=== PATIENT | female | born 1945 | race Caucasian/White ===

== ENCOUNTER → 2023-05-11 10:18 | Outpatient (REF) | payer MEDICARE, BC, SELFPAY ==
[2023-05-11 12:17] LABS: % Basophils 0.2 % (0-2); % Eosinophils 3.7 % (0-6); % Immature Granulocytes 0.2 % (0-0.5); % Lymphocytes 19.4 % (20.5-51.1); % Monocytes 8.5 % (1.7-9.3); Absolute Eosinophils 0.2 10^3/uL (0-0.7); Absolute Lymphocytes 1.1 10^3/uL (1.2-3.4); Absolute Monocytes 0.5 10^3/uL (0.1-0.6); Absolute Neutrophils 3.9 10^3/uL (1.4-6.5); Hemoglobin 13.9 g/dL (12.0-16.0); Mean Corp Hgb Conc. 33.9 g/dL (33.0-37.0); Mean Corpuscular Hgb 34.8 pg (27.0-31.0); Mean Corpuscular Volume 102.5 fL (81.0-99.0); Mean Platelet Volume 10.2 fL (7.4-10.4); Nucleated Red Blood Cells % 0 %; Platelet Count 234 10^3/uL (130-400); Red Cell Dist. Width 12.5 % (11.5-14.5); White Blood Cell Count 5.7 10^3/uL (4.8-10.8)
[2023-05-11 12:55] LABS: ALT (SGPT) 29 U/L (0-35); AST (SGOT) 28 U/L (14-36); Albumin 3.9 g/dl (3.5-5.0); Alkaline Phosphatase 201 U/L (38-126); Blood Urea Nitrogen 15 mg/dl (7-17); Calcium 9.3 mg/dl (8.4-10.2); Carbon Dioxide 28 mmol/L (22-30); Chloride 103 mmol/L (98-107); Glucose 90 mg/dl (70-99); Potassium 4.5 mmol/L (3.5-5.1); Sodium 134 mmol/L (135-145); Total Bilirubin 0.5 mg/dl (0.2-1.3); Total Cholesterol 166 mg/dl (50-199); Total Protein 6.6 g/dl (6.3-8.2); Triglyceride 109 mg/dl (10-149); Very Low Density Lipoprotein 21 mg/dl (0-30); eGFR > 60.00
[2023-05-11 13:04] LABS: HDL Cholesterol 110 mg/dl; LDL Cholesterol, Calculated 35 mg/dl
[2023-05-11 13:24] LABS: TSH Reflex To Free T4 0.74 uIU/ml (0.47-4.68)
[2023-05-11 14:21] LABS: Glycohemoglobin (HgbA1c) 5.4 % (4.0-5.6)
== END ==
LOC: DHCBC HW 10:18
PROVIDERS: ATTENDING PHYSICIAN Internal Medicine; FAMILY PHYSICIAN Student in an Organized Health Care Education/Training Program
DX: I25.10 Atherosclerotic heart disease of native coronary artery without angina pectoris (principal); I25.810 Atherosclerosis of coronary artery bypass graft(s) without angina pectoris; I10 Essential (primary) hypertension; R06.09 Other forms of dyspnea; E78.2 Mixed hyperlipidemia
CPT/HCPCS: 36415; 80053; 80061; 83036; 84443; 85025; 93306

== ENCOUNTER → 2023-06-08 14:26 | Outpatient (REF) | payer MEDICARE, BC, SELFPAY | LOC: HWRAD 14:26 | PROVIDERS: ATTENDING PHYSICIAN Student in an Organized Health Care Education/Training Program | DX: R05.3 Chronic cough (principal) | CPT/HCPCS: 71250 ==

== ENCOUNTER → 2023-08-01 | Outpatient (REF) | payer MEDICARE, BC, SELFPAY | LOC: DHSLP | PROVIDERS: ATTENDING PHYSICIAN Internal Medicine Critical Care Medicine; FAMILY PHYSICIAN Student in an Organized Health Care Education/Training Program | DX: G47.33 Obstructive sleep apnea (adult) (pediatric) (principal) | CPT/HCPCS: 95800 ==

== ENCOUNTER → 2023-10-26 11:40 | Outpatient (REF) | payer MEDICARE, BC, SELFPAY ==
[2023-10-26 16:32] LABS: NT-proBNP 494 pg/ml
[2023-10-26 17:24] LABS: Folate 6.4 ng/ml (2.76-20); Vitamin B12 499 pg/ml (239-931)
[2023-10-27 15:23] LABS: Lyme Antibody Screen, EIA Negative (Negative)
[2023-10-28 11:33] LABS: Syphilis/T. pallidum Ab Reflex Negative (Negative)
== END ==
LOC: HWLAB 11:40
PROVIDERS: ATTENDING PHYSICIAN Student in an Organized Health Care Education/Training Program
DX: R06.09 Other forms of dyspnea (principal); G62.9 Polyneuropathy, unspecified; D53.9 Nutritional anemia, unspecified
CPT/HCPCS: 36415; 82607; 82746; 83880; 84155; 84165; 86618; 86780

== ENCOUNTER → 2024-03-07 11:03 | Outpatient (REF) | payer MEDICARE, BC, SELFPAY ==
[2024-03-07 16:39] LABS: % Basophils 0.4 % (0-2); % Eosinophils 3.2 % (0-6); % Immature Granulocytes 0.5 % (0-0.5); % Lymphocytes 23.2 % (20.5-51.1); % Monocytes 7.1 % (1.7-9.3); % Neutrophils 65.6 % (42.2-75.2); Absolute Eosinophils 0.2 10^3/uL (0-0.7); Absolute Lymphocytes 1.3 10^3/uL (1.2-3.4); Absolute Monocytes 0.4 10^3/uL (0.1-0.6); Absolute Neutrophils 3.7 10^3/uL (1.4-6.5); Hematocrit 42.4 % (37.0-47.0); Mean Corpuscular Hgb 34.3 pg (27.0-31.0); Mean Corpuscular Volume 103.9 fL (81.0-99.0); Mean Platelet Volume 9.9 fL (7.4-10.4); Nucleated Red Blood Cells % 0 %; Platelet Count 261 10^3/uL (130-400); Red Blood Cell Count 4.08 10^6/uL (4.20-5.40); Red Cell Dist. Width 12.4 % (11.5-14.5); Reticulocyte Count 2.5 % (0.4-2.8); White Blood Cell Count 5.7 10^3/uL (4.8-10.8)
[2024-03-07 16:44] LABS: ALT (SGPT) 33 U/L (0-35); AST (SGOT) 30 U/L (14-36); Albumin 3.9 g/dl (3.5-5.0); Alkaline Phosphatase 186 U/L (38-126); Blood Urea Nitrogen 14 mg/dl (7-17); Calcium 9.4 mg/dl (8.4-10.2); Carbon Dioxide 27 mmol/L (22-30); Chloride 100 mmol/L (98-107); Glucose 103 mg/dl (70-99); Potassium 4.5 mmol/L (3.5-5.1); Sodium 135 mmol/L (135-145); Total Bilirubin 0.3 mg/dl (0.2-1.3); Total Protein 6.6 g/dl (6.3-8.2); eGFR > 60.00
[2024-03-07 17:15] LABS: TSH 0.76 uIU/ml (0.47-4.68)
[2024-03-07 17:50] LABS: Folate 7.7 ng/ml (2.76-20)
[2024-03-07 18:51] LABS: Vitamin B12 382 pg/ml (239-931)
== END ==
LOC: HWLAB 11:03
DX: E66.9 Obesity, unspecified (principal); D53.9 Nutritional anemia, unspecified
CPT/HCPCS: 36415; 80053; 82607; 82746; 84443; 85025; 85045

== ENCOUNTER → 2024-03-12 07:45 | Outpatient (REF) | payer MEDICARE, BC, SELFPAY | LOC: HWRCS 07:45 | DX: R06.02 Shortness of breath (principal) | CPT/HCPCS: 78452; 93017; A9500; J2785 ==

== ENCOUNTER 2024-03-16 06:27 | Day surgery (SDC) | payer MEDICARE, BC, SELFPAY ==
--- NOTE | 2024-03-14 07:50 | HPS.HSE ---
Family Physician
-
Family Physician: NO INTERVIEW UNKNOWN
Chief Complaint
-
Coronary artery disease. Abnormal stress test. Chest pain.
History of Present Illness
The patient is a 78 year old female presenting today with recent chest pain. She describes a 'tightness' in her chest over the last few weeks that has remained fairly constant. Her discomfort radiates down her right upper extremity and
across her upper back. She notes associated shortness of breath and dizziness. She does report she has been under more stress lately given her 's recent health issues. Exertion notably makes her chest discomfort worse. Relaxation techniques
like 'reading a good book' make her chest discomfort better. She does have a history of coronary artery disease for which she underwent a CABG x3 and left circumflex stent in 2011. She is on Aspirin and Crestor for this diagnosis. She was advised by
her routine physical therapy instructor, Dr. Yves Dupont, to undergo a stress test given her medical history and concerning symptoms. Her stress test on 03/12/2024 revealed a medium-sized, mild intensity reversible defect in the mid to distal anterolateral and
inferolateral busby, consistent with ischemia in the LAD versus left circumflex territory. Given her abnormal result, she will next proceed with left cardiac catheterization with bypass grafts. She denies any current complaints today such as
palpitations, nausea, vomiting, diarrhea, lightheadedness, cough, sore throat, or fever.
Medical History
Past Medical History
Past Medical History: Reports Other
Additional Past Medical History:
1. Coronary artery disease, status post CABG x3 and PCI with left circumflex stent 2011.
2. Abnormal stress test.
3. Chest pain.
4. Hypertension.
5. Hyperlipidemia.
6. Congestive heart failure, preserved ejection fraction.
7. History of syncope with non-functioning LINQ recorder.
8. Mild mitral regurgitation.
9. Mild tricuspid regurgitation.
10. Chronic venous insufficiency with lymphedema.
11. 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
12. Asthma, mild and intermittent.
13. Chronic bronchitis.
14. Interstitial lung disease.
15. Obstructive sleep apnea, compliant with CPAP.
16. GERD.
17. Diverticulitis, status post bowel resection 2001.
18. Remote GI ulcer with bleed.
19. Ambulatory dysfunction.
20. Osteoarthritis, status post right total knee arthroplasty, 02/2021, and left total knee arthroplasty 11/2021.
21. Basal cell carcinoma, status post multiple excisions.
22. Obesity, BMI 37.7.
23. History of remote tobacco abuse.
24. Daily alcohol.
Past Surgical History: Reports Other
Additional Past Surgical History:
1. PCI with left circumflex stent.
2. CABG x3.
3. Implantable LINQ recorder.
4. Left total knee arthroplasty.
5. Right total knee arthroplasty.
6. Bilateral knee meniscectomies.
7. Colon resection.
8. section x2.
9. Tonsillectomy.
10. Eye socket repair.
11. Bilateral cataract extraction.
12. Colonoscopy x3.
Social History
Tobacco: Former Smoker (She is a former 1 pack per day cigarette smoker who quit tobacco altogether 20+ years ago. )
Alcohol: Daily (She reports 2 glasses of wine consumed daily. )
Personal:
Living: Other (She lives with her in a first floor, 1 story condo with 5 steps to enter in. )
Family History
Family History: Early CAD
Allergies / Home Medications
Allergy/Medication List:
Home medications:
1. Tylenol 1000 mg p.o. twice a day.
2. Ascorbic acid 1000 mg p.o. daily.
3. Aspirin 81 mg p.o. daily.
4. CoQ10 100 mg p.o. daily.
5. Furosemide 40 mg p.o. daily.
6. Nebivolol 5 mg p.o. daily.
7. PreserVision 1 tablet p.o. daily.
8. Rosuvastatin 10 mg p.o. daily.
9. Wegovy 1 mg subcutaneous on Wednesdays.
Allergies: No known allergies.
Review of Systems
-
A 12 point ROS was completed and negative except as noted: Yes
Physical Exam
Vital Signs
Blood pressure 137/72. Heart rate 78. Respirations 18. Pulse ox 99% on room air.
Height 5 feet, 0.5 inches. Weight 89 kg. BMI 37.7.
Physical Exam
General: Well Developed, Well Nourished and No Apparent Distress
HEENT: NormoCephalic, Moist mucous membranes, Atraumatic and PERRLA
Respiratory: Clear
Cardiac: Regular Rhythm
GI: Soft, Non Tender, Non Distended and Other (Obese. )
Musculoskeletal: Other (Chronic lymphedema of bilateral lower extremities. The patient ambulates with a single point cane. )
Skin: Warm and Dry
Neuro: AO x 3 and Nonfocal/grossly intact
Laboratory Results
-
DIAGNOSTIC STUDIES as of 03/07/2024: White blood cell count 5.7. Hemoglobin 14.0. Platelet count 261,000. Sodium 135. Potassium 4.5. BUN 14. Creatinine 0.9. Glucose 103. Calcium 9.4. AST 30. ALT 33. Albumin 3.9.
EKG 03/14/2024: Normal sinus rhythm. ST and T wave abnormality, consider anterior ischemia.
Nuclear stress test 03/12/2024: Medium-sized, mild intensity reversible defect in the mid to distal anterolateral and inferolateral busby, consistent with ischemia in the LAD versus left circumflex territory. Inconclusive ECG for ischemia given the
pharmacological study. Systolic function is normal. The ejection fraction is 68%. Stress Risk is moderate risk study (1 - 3% NV or /year).
Echocardiogram 05/11/2023: Normal LV size and function with no regional wall motion abnormality. Ejection fraction is 60 to 65% by visual estimation. No left ventricular hypertrophy. Stage I diastolic dysfunction suggestive of abnormal relaxation.
Normal right ventricular size and function. Mild mitral regurgitation. Mild tricuspid regurgitation. Estimated pulmonary artery pressure of 40 mmHg, assuming a right atrial pressure of 3 mmHg. Compared to prior from September 03, 2020, estimated PASP is
now top normal.
Impression/Plan
-
IMPRESSION/PLAN:
1. Coronary artery disease, abnormal stress test, and chest pain: The patient is in need of a left cardiac catheterization with bypass grafts with Dr. Keanu Sanchez on 03/16/2024. The benefits and risks of the procedure have been explained to the
patient. The patient understands these risks and wishes to proceed. She is aware to continue her daily Aspirin up to and including the day of her procedure. She has held her Wegovy within 1 week of her catheterization.
[2024-03-14 10:50] VITALS: BMI 37.7
[2024-03-16] VITALS (13 sets, daily range): BP systolic 108–164; BP diastolic 58–115; BMI 37.1
[2024-03-16] MEDS: LOW STRENGTH ASPIRIN 81 MG PO (07:16)
[2024-03-16] MEDS: NSS 267 ML IV (07:35)
[2024-03-16 10:54] LABS: ACT-LR - POC > 397 Seconds (116-155)
[2024-03-16] MEDS: BYSTOLIC 5 MG PO (11:36)
--- NOTE | 2024-03-16 14:07 | ITS.CL.ANGIO ---
Environment Coordinator - Angioplasty
Angioplasty
Procedure Report:
CARDIAC CATHETERIZATION REPORT
Date of Procedure: 03/16/2024
Referring: Yves Dupont M.D., Ph.D.
Indication: Known coronary artery disease status post bypass, new angina, abnormal stress test.
PROCEDURE:
1. Right heart catheterization.
2. Coronary angiography.
3. Bypass angiography.
4. Left heart catheterization.
5. Successful intracoronary lithotripsy of the distal left main coronary artery/ostial circumflex.
6. Successful IVUS guided PCI of the distal left main coronary artery/ostial circumflex.
A total of 55 minutes of procedural/moderate sedation was utilized. An independent medical center manager was present to assist with and help manage the patient's level of consciousness and physiologic status.
ACCESS:
1. 6 Latvian left radial artery using a modified Seldinger technique.
2. 5 Latvian left antecubital vein using a modified Seldinger technique under ultrasound guidance. Ultrasound image obtained.
CATHETERS:
1. 5 Latvian balloon wedge.
2. 5 Latvian DENYS.
3. 5 Latvian JL 4.
4. 5 Latvian JR4.
5. 6 Latvian AL-1.
6. 6 Latvian JL 4 guiding catheter.
HEMODYNAMIC DATA
Weight (kg): 88.9
AO (s/d/x, mmHg): 174/81/122
LV (s/x, mmHg): 174/16 (A wave to 30)
PCWP (a/v/x, mmHg): //18
PA (s/d/x, mmHg): /
RV (s/x, mmHg): 45/10
RA (a/v/x, mmHg): 01/25/
SVC SvO2 (%): 71.0
IVC SvO2 (%): Not obtained.
RA SvO2 (%): Not obtained.
RV SvO2 (%): Not obtained.
PA SvO2 (%): 75.8
SaO2 (%): 97.9
Hbg (g/dL): 12.9
KACI
CO (L/min): 4.47
CI (L/min/m2): 2.39
Thermodilution
CO (L/min): Not performed
CI (L/min/m2): Not performed.
TPG (mmHg): 11
PVR (Wright Units): 2.46
SVR (dynes*seconds*cm^-5): 2003
AVO2 Diff (Volume %): 3.88
AV gradient (x, mmHg): None.
AV area (cm2): Normal.
MV gradient (x, mmHg): Not assessed.
MV area (cm2): Not assessed.
LEFT VENTRICULOGRAPHY: Not performed.
AORTOGRAPHY: Not performed.
CORONARY ANGIOGRAPHY
Dominance: Right.
Left Main: Normal size, bifurcating vessel. There is a hazy, densely calcified 70+% lesion in the distal left main coronary artery extending into the ostium of the left circumflex.
LAD: Normal size vessel giving rise to at least 1 significant diagonal. There is a 95% lesion in the proximal margin of the LAD. The first diagonal appears to be flush occluded at its origin. The distal LAD is supplied by a patent CHAND graft.
The diagonal supplied by patent SVG.
Ramus: Congenitally absent.
Circumflex: Normal size, nondominant vessel giving rise to a single obtuse marginal which subsequently bifurcates into 2 daughter vessels. A patent stent is visible in the proximal margin of the circumflex, well clear of the origin. There is a
hazy, densely calcified 80% lesion in the ostium of the circumflex that extends from the left main lesion.
RCA: Normal size, dominant vessel. There is notable external calcification. There is a long, 20% lesion in the mid vessel.
BYPASS GRAFT ANGIOGRAPHY
CHAND to LAD: Normal size graft with nearly horizontal, medially angled origin with end-to-side anastomosis to the mid LAD. There is no evidence of stenosis or graft degeneration.
SVG to D1: Normal size graft with end-to-side anastomosis to the mid D1. There is no evidence of stenosis or graft degeneration. This requires an AL-1 catheter for engagement. The origin is near the middle of the loop recorder.
SVG to RCA: Not injected, known to be occluded.
INTERVENTIONS
1. Successful intracoronary lithotripsy of the densely calcified 70-80% lesion in the distal left main coronary artery into the ostium of the left circumflex (shockwave 3.5 x 12 lithotripsy balloon) with reduction in stenosis to 20%, maintaining
ELAN-3 flow.
2. Intravascular ultrasound.
3. Successful PCI of the densely calcified 70-80% distal LMCA/ostial LCx lesion ([employer] [place] Moffat 3.5 x 18 LARISSA, postdilated with a 3.5 NC balloon throughout and a 4.0 NC balloon in the proximal margin) with reduction in stenosis to 0%,
maintaining ELAN-3 flow.
Narrative:
The decision was made to proceed with percutaneous coronary intervention. The diagnostic catheter was removed over a wire and a 6Fr EBU 4.0 guiding catheter was advanced to the aortic root but would not sit in the artery. The EBU 4.0 was exchanged
for a 6 [place]vian JL 4.0 guiding catheter which was advanced into the ascending aorta and seated in the left main coronary artery. Additional heparin was given and a Power Turn Flex wire was advanced into the distal circumflex. The hazy 70-80% distal
left main/ostial circumflex lesion was predilated with a 2.0 x 12 semi-compliant balloon to 12 jaylen.
The decision was made to perform intracoronary imaging. An IVUS catheter was advanced through the guiding catheter and into the ostium of the artery. Ring down was performed once the imaging crystal was no longer inside of the guiding catheter. The
IVUS catheter was advanced into the proximal circumflex to the level of the prior stent. Intravascular ultrasound was performed in a retrograde fashion using a slow pullback. Intracoronary imaging demonstrated a densely calcified, occlusive lesion
in the distal left main coronary artery leading into the ostial circumflex. The lesion was more densely calcified than appreciated on angiography. Vessel sizing measurements were taken.
The decision was made to proceed with plaque modification. A Shockwave 3.5 x 12 coronary lithotripsy balloon was advanced over the wire and into the distal left main/ostial circumflex lesion. The balloon was sterilely connected to the controller
and prepped to negative pressure. Meticulous care was taken while positioning the shockwave balloon. Once in satisfactory position, the balloon was inflated to 4 jaylen. After confirming good contact with the vessel wall, 10 pulses were delivered.
After delivering 10 pulses, the balloon was inflated to 6 jaylen then deflated. The entire lesion was treated in a similar manner for total of 5 rounds.
The lithotripsy balloon was removed and a [employer] [place] Moffat 3.5 x 18 drug-eluting stent was advanced. The stent was deployed at 12 atmospheres. The stent balloon was removed. A 3.5 x 12 noncompliant balloon was advanced into the stent and the
stent was postdilated to 14 atmospheres in the distal and mid portions and 16 jaylen in the proximal margin. The noncompliant balloon was withdrawn and a 4.0 x 8 noncompliant balloon was advanced. The mid stent and proximal stent margin were
postdilated to 14 jaylen and 16 jaylen respectively. The noncompliant balloon was withdrawn. IVUS was repeated showing excellent stent expansion and apposition throughout the proximal circumflex and distal left main coronary artery. The IVUS catheter
was withdrawn.
Angiography was performed in orthogonal views, confirming good stent expansion and an excellent angiographic result. The coronary wire was withdrawn and the guide was disengaged from the artery. The catheter was removed over a standard J-wire.
Closure Device: Vascular band for the left radial artery, manual pressure for the left antecubital vein.
Radiation dose (mGy): 945.87
DAP (cm2.Gy): 63.6239
Fluoroscopy time (minutes): 22.8
CONCLUSIONS:
1. Right dominant circulation with a 20% lesion in the mid RCA, a 95% lesion in the proximal margin of the LAD, a flush occluded diagonal and a hazy, densely calcified 70-80% lesion in the distal left main coronary artery leading into the ostium of
the left circumflex, status post prior bypass (patent CHAND to mid LAD, patent SVG to D1, flush occluded SVG to RCA) and a widely patent stent in the proximal circumflex, distal to the ostial lesion.
2. Status post successful intracoronary lithotripsy (shockwave 3.5 x 12 lithotripsy balloon) and IVUS guided PCI to the distal left main/ostial circumflex lesion ([employer]onic [place] 3.5 x 18 LARISSA, postdilated with a 3.5 NC balloon throughout
and a 4.0 NC balloon in the proximal margin) with reduction in stenosis to 0%, maintaining ELAN-3 flow.
3. Mildly elevated filling pressures (LVEDP = 16 mmHg, PCWP = 18 mmHg at 88.9 kg) without evidence of diastolic dysfunction (A wave to 30 mmHg).
4. Mild, postcapillary pulmonary hypertension (mean PA = 29 mmHg, PCWP = 18 mmHg, cardiac output = 4.47 L/min, PVR = 2.46 Wood units), WHO group 2.
RECOMMENDATIONS:
1. Expectant management after cardiac catheterization via left radial/left antecubital approach.
2. Limited weight bearing on the left wrist for one week.
3. Dual antiplatelet therapy with aspirin and clopidogrel for at least 12 months, followed by aspirin indefinitely.
4. Aggressive secondary prevention with high-dose, high potency statin. She is currently on rosuvastatin 10 mg daily. Increasing to 20 mg may be beneficial. Goal LDL <55.
5. OMT/GDMT as hemodynamics will tolerate.
Copy to: Yves Dupont M.D., Ph.D., Wendy Knapp M.D.
Keanu Sanchez DO, FACC, FACP
--- NOTE | 2024-03-16 16:01 | W.PN.UPDATE ---
Update Note
Progress Note Update
79 yo WF s/p PCI LCx with shockwave (Same day) She denies cp, sob, anuj diet, voiding, L rad site c/d/i, mod ecchymosis distal to site, brachial site c/d/i, EKG SR. She will continue DAPT ASA/Plavix. We will increase rosuvastatin to 10mg last LDL
under 55. Cardiac rehab c/s. Activity restrictions reviewed. She will f/u LAB RN in 2-4 weeks. She is for d/c home after 4pm.
CONCLUSIONS:
1. Right dominant circulation with a 20% lesion in the mid RCA, a 95% lesion in the proximal margin of the LAD, a flush occluded diagonal and a hazy, densely calcified 70-80% lesion in the distal left main coronary artery leading into the ostium of
the left circumflex, status post prior bypass (patent CHAND to mid LAD, patent SVG to D1, flush occluded SVG to RCA) and a widely patent stent in the proximal circumflex, distal to the ostial lesion.
2. Status post successful intracoronary lithotripsy (shockwave 3.5 x 12 lithotripsy balloon) and IVUS guided PCI to the distal left main/ostial circumflex lesion ([employer]onic [place] 3.5 x 18 LARISSA, postdilated with a 3.5 NC balloon throughout
and a 4.0 NC balloon in the proximal margin) with reduction in stenosis to 0%, maintaining ELAN-3 flow.
3. Mildly elevated filling pressures (LVEDP = 16 mmHg, PCWP = 18 mmHg at 88.9 kg) without evidence of diastolic dysfunction (A wave to 30 mmHg).
4. Mild, postcapillary pulmonary hypertension (mean PA = 29 mmHg, PCWP = 18 mmHg, cardiac output = 4.47 L/min, PVR = 2.46 Wood units), WHO group 2.
== END 2024-03-16 16:00 | disposition home or self-care (01) ==
LOC: CATH 06:27
PROVIDERS: ATTENDING PHYSICIAN Internal Medicine Cardiovascular Disease; FAMILY PHYSICIAN Student in an Organized Health Care Education/Training Program; OTHER PHYSICIAN Internal Medicine
DX: I25.119 Atherosclerotic heart disease of native coronary artery with unspecified angina pectoris (principal); I25.719 Atherosclerosis of autologous vein coronary artery bypass graft(s) with unspecified angina pectoris; I25.84 Coronary atherosclerosis due to calcified coronary lesion; I11.0 Hypertensive heart disease with heart failure; E66.9 Obesity, unspecified; Z68.37 Body mass index [BMI] 37.0-37.9, adult; E78.5 Hyperlipidemia, unspecified; G47.33 Obstructive sleep apnea (adult) (pediatric); I87.2 Venous insufficiency (chronic) (peripheral); I08.1 Rheumatic disorders of both mitral and tricuspid valves; R55 Syncope and collapse; Z86.718 Personal history of other venous thrombosis and embolism; J45.909 Unspecified asthma, uncomplicated; J42 Unspecified chronic bronchitis; J84.9 Interstitial pulmonary disease, unspecified; K21.9 Gastro-esophageal reflux disease without esophagitis; M19.90 Unspecified osteoarthritis, unspecified site; Z96.653 Presence of artificial knee joint, bilateral; Z85.828 Personal history of other malignant neoplasm of skin; Z87.891 Personal history of nicotine dependence; K57.92 Diverticulitis of intestine, part unspecified, without perforation or abscess without bleeding; Z90.49 Acquired absence of other specified parts of digestive tract; Z90.89 Acquired absence of other organs; I50.9 Heart failure, unspecified; I27.29 Other secondary pulmonary hypertension; Z79.82 Long term (current) use of aspirin; Z79.899 Other long term (current) drug therapy; Z82.49 Family history of ischemic heart disease and other diseases of the circulatory system; Z95.5 Presence of coronary angioplasty implant and graft
CPT/HCPCS: 99152; 99153; 92972; 92978; 76937; 93005; 93459; 93461; C1725; C1753; C1761; C1874; C1887; C1894; C9600; Q9967

== ENCOUNTER 2024-04-12 10:39 | Outpatient (RCR) | payer MEDICARE, BC, SELFPAY ==
[2024-04-04 14:34] LABS: Glucose - Point of Care 97 mg/dl (70-99)
[2024-04-04 15:27] LABS: Glucose - Point of Care 92 mg/dl (70-99)
[2024-04-10 10:34] LABS: Glucose - Point of Care 97 mg/dl (70-99)
[2024-04-10 11:21] LABS: Glucose - Point of Care 85 mg/dl (70-99)
== END 2024-04-12 23:59 | disposition home or self-care (01) ==
LOC: CRHB 10:39
PROVIDERS: ATTENDING PHYSICIAN Internal Medicine
DX: I25.10 Atherosclerotic heart disease of native coronary artery without angina pectoris (principal); Z95.5 Presence of coronary angioplasty implant and graft
CPT/HCPCS: 82962; G0422; G0423

== ENCOUNTER 2024-05-10 10:36 | Outpatient (RCR) | payer MEDICARE, BC, SELFPAY | END 2024-05-10 23:59 | disposition home or self-care (01) | LOC: CRHB 10:36 | PROVIDERS: ATTENDING PHYSICIAN Internal Medicine | DX: I25.10 Atherosclerotic heart disease of native coronary artery without angina pectoris (principal); Z95.5 Presence of coronary angioplasty implant and graft | CPT/HCPCS: G0422; G0423 ==

== ENCOUNTER 2024-06-12 13:22 | Outpatient (RCR) | payer MEDICARE, BC, SELFPAY | END 2024-06-12 23:59 | disposition home or self-care (01) | LOC: CRHB 13:22 | PROVIDERS: ATTENDING PHYSICIAN Internal Medicine | DX: I25.10 Atherosclerotic heart disease of native coronary artery without angina pectoris (principal); Z95.5 Presence of coronary angioplasty implant and graft | CPT/HCPCS: G0422; G0423 ==

== ENCOUNTER 2024-07-12 10:35 | Outpatient (RCR) | payer MEDICARE, BC, SELFPAY ==
[2024-06-19 10:53] LABS: HDL Cholesterol 90 mg/dl; LDL Cholesterol, Calculated 45 mg/dl; Total Cholesterol 153 mg/dl (50-199); Triglyceride 91 mg/dl (10-149); Very Low Density Lipoprotein 18 mg/dl (0-30)
== END 2024-07-12 23:59 | disposition home or self-care (01) ==
LOC: CRHB 10:35
PROVIDERS: ATTENDING PHYSICIAN Internal Medicine; FAMILY PHYSICIAN Student in an Organized Health Care Education/Training Program
DX: I25.10 Atherosclerotic heart disease of native coronary artery without angina pectoris (principal); Z95.5 Presence of coronary angioplasty implant and graft
CPT/HCPCS: 36415; 80061; G0422; G0423

== ENCOUNTER 2024-07-31 10:04 | Outpatient (RCR) | payer MEDICARE, BC, SELFPAY | END 2024-08-02 12:06 | disposition home or self-care (01) | LOC: CRHB 10:04 | PROVIDERS: ATTENDING PHYSICIAN Internal Medicine; FAMILY PHYSICIAN Student in an Organized Health Care Education/Training Program | DX: I25.10 Atherosclerotic heart disease of native coronary artery without angina pectoris (principal); Z95.5 Presence of coronary angioplasty implant and graft | CPT/HCPCS: G0422; G0423 ==

== ENCOUNTER → 2024-11-13 11:41 | Outpatient (REF) | payer MEDICARE, BC, SELFPAY | LOC: HWRCS 11:41 | PROVIDERS: ATTENDING PHYSICIAN Internal Medicine; FAMILY PHYSICIAN Student in an Organized Health Care Education/Training Program | DX: I25.810 Atherosclerosis of coronary artery bypass graft(s) without angina pectoris (principal) | CPT/HCPCS: 78452; 93017; A9500; J2785 ==

== ENCOUNTER → 2024-11-26 09:55 | Outpatient (REF) | payer MEDICARE, BC, SELFPAY ==
[2024-11-26 12:21] LABS: Albumin 4.0 g/dl (3.5-5.0); Blood Urea Nitrogen 15 mg/dl (7-17); Calcium 9.2 mg/dl (8.4-10.2); Carbon Dioxide 28 mmol/L (22-30); Chloride 102 mmol/L (98-107); Glucose 82 mg/dl (70-99); Potassium 4.4 mmol/L (3.5-5.1); Sodium 135 mmol/L (135-145); eGFR > 60.00
== END ==
LOC: HWLAB 09:55
PROVIDERS: FAMILY PHYSICIAN Student in an Organized Health Care Education/Training Program
DX: G62.9 Polyneuropathy, unspecified (principal); Z68.34 Body mass index [BMI] 34.0-34.9, adult; H53.8 Other visual disturbances
CPT/HCPCS: 36415; 80069; 85652